=== PATIENT | female | born 1975 | race Caucasian/White ===

== ENCOUNTER 2022-08-08 11:14 | Outpatient (CLI) | payer OTHER, SELFPAY ==
--- NOTE | 2022-08-08 11:30 | CRLHL7_ITS ---
For Patients: As a result of the Century Cures Act, medical imaging exams and procedure reports are released immediately into your electronic medical record. You may view this report before your referring provider. If you have questions, please contact your health care provider. BILATERAL SCREENING MAMMOGRAM WITH COMPUTER-AIDED DETECTION AND TOMOSYNTHESIS TECHNIQUE: CC and MLO views were obtained. These mammographic images have been obtained using full-field digital technique. These mammographic images were interpreted with the benefit of computer-aided detection. Breast Tomosynthesis was used in this interpretation. COMPARISON FILM: 08/07/21, 01/13/20, 11/08/18. FINDINGS: The breasts are extremely dense, which lowers the sensitivity of mammography IMPRESSION: There is no radiographic evidence for malignancy. ASSESSMENT: BI-RADS Category 1: Negative RECOMMENDATION: Routine screening mammogram in 1 year. A lay language report of this examination will be provided to the patient. Carlos Miller M.D. Diagnostic Radiologist [email or web address] JANINE/Dictated by: Carlos Miller MD @ 08/08/2022 12:39:00 PM (Electronically Signed)
== END 2022-08-08 11:15 | disposition home or self-care (01) ==
LOC: MAMMO 11:15
PROVIDERS: Visit Provider Obstetrics & Gynecology
DX: Z12.31 Encounter for screening mammogram for malignant neoplasm of breast (principal); R92.2 Inconclusive mammogram
CPT/HCPCS: 77063; 77067

== ENCOUNTER 2023-09-04 13:00 | Outpatient (CLI) | payer OTHER, SELFPAY ==
--- NOTE | 2023-09-04 13:00 | CRLHL7_ITS ---
For Patients: As a result of the Century Cures Act, medical imaging exams and procedure reports are released immediately into your electronic medical record. You may view this report before your referring provider. If you have questions, please contact your health care provider. BILATERAL SCREENING MAMMOGRAM WITH COMPUTER-AIDED DETECTION AND TOMOSYNTHESIS TECHNIQUE: CC and MLO views were obtained. These mammographic images have been obtained using full-field digital technique. These mammographic images were interpreted with the benefit of computer-aided detection. Breast Tomosynthesis was used in this interpretation. COMPARISON FILM: 08/08/22, 08/07/21, 01/13/20. FINDINGS: The breasts are extremely dense, which lowers the sensitivity of mammography. IMPRESSION: There is no radiographic evidence for malignancy. ASSESSMENT: BI-RADS Category 1: Negative RECOMMENDATION: Routine screening mammogram in 1 year. A lay language report of this examination will be provided to the patient. Carlos Miller M.D. Diagnostic Radiologist [email or web address] SP/Dictated by: Carlos Miller MD @ 09/04/2023 3:27:00 PM (Electronically Signed)
== END 2023-09-04 13:01 | disposition home or self-care (01) ==
LOC: MAMMO 13:00
PROVIDERS: Visit Provider Obstetrics & Gynecology
DX: Z12.31 Encounter for screening mammogram for malignant neoplasm of breast (principal); R92.2 Inconclusive mammogram
CPT/HCPCS: 77063; 77067

== ENCOUNTER 2024-02-10 09:29 | Outpatient (CLI) | payer OTHER, SELFPAY | END 2024-02-10 09:30 | disposition home or self-care (01) | LOC: NFLDREF 02-12 05:51 | PROVIDERS: Visit Provider Obstetrics & Gynecology | DX: Z01.419 Encounter for gynecological examination (general) (routine) without abnormal findings (principal); Z13.6 Encounter for screening for cardiovascular disorders; Z13.1 Encounter for screening for diabetes mellitus | CPT/HCPCS: 80061; 82947 ==

== ENCOUNTER 2025-01-03 15:23 | Outpatient (CLI) | payer BC, SELFPAY ==
--- NOTE | 2025-01-03 15:40 | CRLHL7_ITS ---
For Patients: As a result of the Century Cures Act, medical imaging exams and procedure reports are released immediately into your electronic medical record. You may view this report before your referring provider. If you have questions, please contact your health care provider. BILATERAL DIGITAL SCREENING MAMMOGRAM WITH COMPUTER-AIDED DETECTION AND TOMOSYNTHESIS CLINICAL HISTORY: : Routine screening exam. COMPARISON: 09/04/23, 08/08/22, 08/07/21 TECHNIQUE: Digital mammogram in CC and MLO projections including computer-aided detection (CAD). Tomosynthesis was used in this interpretation. BREAST COMPOSITION: The breasts are extremely dense, which lowers the sensitivity of mammography. FINDINGS: RIGHT Breast: No suspicious findings LEFT Breast: Focal asymmetric density left breast XCCL view only 3 cm from the nipple. IMPRESSION: LEFT breast asymmetry/mass. RECOMMENDATIONS: Additional mammographic views of the LEFT breast including 3D spot compression XCCL and 3D true lateral. LEFT breast ultrasound may also be required. The [facility] will contact the patient. A lay language report of this examination will be provided to the patient. BI-RADS Category 0: Incomplete: Need Additional Imaging Evaluation Dictated by Carlos Miller MD @ 01/05/2025 11:44:25 AM Dictated by: Carlos Miller MD @ 01/05/2025 11:44:31 (Electronically Signed)
== END 2025-01-03 15:24 | disposition home or self-care (01) ==
LOC: MAMMO 15:24
PROVIDERS: Visit Provider Obstetrics & Gynecology
DX: Z12.31 Encounter for screening mammogram for malignant neoplasm of breast (principal); R92.343 Mammographic extreme density, bilateral breasts; N63.20 Unspecified lump in the left breast, unspecified quadrant
CPT/HCPCS: 77063; 77067

== ENCOUNTER 2025-01-11 10:25 | Outpatient (CLI) | payer BC, SELFPAY ==
--- NOTE | 2025-01-11 10:45 | CRLHL7_ITS ---
For Patients: As a result of the Cures Act, medical imaging exams and procedure reports are released immediately into your electronic medical record. You may view this report before your referring provider. If you have questions, please contact your health care provider. DIGITAL DIAGNOSTIC LEFT MAMMOGRAM USING TOMOSYNTHESIS LEFT BREAST ULTRASOUND CLINICAL HISTORY: LEFT breast mass/asymmetry. COMPARISON: 01/03/2025, 09/04/2023, 08/08/2023. TECHNIQUE: Digital LEFT mammogram in two projections. Tomosynthesis was used in this interpretation. Real-time ultrasound imaging of LEFT breast with imaging documentation. Scanning was performed by both the technologist and the radiologist. BREAST COMPOSITION: The breasts are extremely dense, which lowers the sensitivity of mammography. FINDINGS: 3D spot compression CC/MLO LEFT breast mammogram images submitted. Persistent nodular density is present within the upper breast without architectural distortion. No suspicious calcifications. Targeted LEFT breast ultrasound performed. At 12 o`clock 2 cm from the nipple there is a simple circumscribed anechoic cyst with increased through-transmission which measures 1.6 x 0.7 x 1.7 cm. Additional clustered microcysts are present elsewhere throughout the breast including 11 o`clock 1 cm from the nipple which measures 10 x 5 x 7 millimeters. IMPRESSION: Benign fibrocystic changes with multiple simple cysts and clustered microcysts. No evidence of malignancy. RECOMMENDATIONS: Routine BILATERAL screening mammography. A lay language report of this examination will be provided to the patient. BI-RADS Category 2: Benign Dictated by Carlos Miller MD @ 01/12/2025 10:48:23 AM jj/Dictated by: Carlos Miller MD @ 01/12/2025 10:48:00 AM (Electronically Signed)
--- NOTE | 2025-01-11 11:15 | CRLHL7_ITS ---
For Patients: As a result of the Cures Act, medical imaging exams and procedure reports are released immediately into your electronic medical record. You may view this report before your referring provider. If you have questions, please contact your health care provider. SEE DIGITAL DIAGNOSTIC LEFT MAMMOGRAM PERFORMED SAME DAY CRL:[email or web address]/Dictated by: Carlos Miller MD @ 01/12/2025 10:48:00 AM (Electronically Signed)
== END 2025-01-11 10:26 | disposition home or self-care (01) ==
LOC: MAMMO 10:27
PROVIDERS: Visit Provider Obstetrics & Gynecology
DX: N63.20 Unspecified lump in the left breast, unspecified quadrant (principal); R92.8 Other abnormal and inconclusive findings on diagnostic imaging of breast
CPT/HCPCS: 76642; 77065; G0279

== ENCOUNTER 2025-03-11 15:28 | Outpatient (CLI) | payer BC, SELFPAY | END 2025-03-11 15:29 | disposition home or self-care (01) | LOC: NFLDREF 03-14 15:13 | PROVIDERS: Visit Provider Family Medicine | DX: N39.0 Urinary tract infection, site not specified (principal); B96.20 Unspecified Escherichia coli [E. coli] as the cause of diseases classified elsewhere | CPT/HCPCS: 87086 ==